=== PATIENT | female | born 1980 | race American Indian/Alaskan Native ===

== ENCOUNTER 2018-07-12 16:46 | Emergency (ER) | payer OTHER ==
[2018-07-12 17:17] VITALS: BP 130/81; RESP 18; TEMP 99; O2SAT 94
[2018-07-12] MEDS ORDERED: Tdap Vaccine 0.5 ml Vial (10-64 yrs) IM ONE ×2 (17:45→17:52)
--- NOTE | 2018-07-12 17:52 | C.PDOC ---
History Of Present Illness 37 y/o female c/o laceration to right pinky from a can today. last tdap unk. pt sts it didn't stop bleeding for an hour, not on blood thinners. no active bleeding now. 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 Negative for: Rash Neurological: Negative for: Weakness, Numbness Physical Exam - Physical Exam Appears: Non-toxic, No Acute Distress Skin: Warm, Dry, Other (0.5 cm shallow lacration to right pinky finger proximal to nail; no actibe bleeding. ) Extremity: Normal ROM, Capillary Refill (normal) Pulses: Left Radial: Normal, Right Radial: Normal Neurological/Psych: Oriented x3, Normal Speech, Normal Cognition, Normal Motor, Normal Sensation ED Course And Treatment O2 Sat by Pulse Oximetry: 94 Laceration - Laceration Repair right pinky Wound Length (In cm): 0.5 Description Of Wound: Linear Wound Cleansed With: Sterile Saline Wound Examination: Irrigated With Saline Wound Closure: Skin Glue Wound Complexity: Simple Medical Decision Making Medical Decision Making: shallow laceration to fight pinky finger repaired with glue. Disposition Counseled Patient/Family Regarding: Diagnosis, Need For Followup - Disposition Disposition: HOME/ ROUTINE Disposition Time: 17:50 Condition: GOOD Additional Instructions: Keep finger clean and dry. Glue will fall off on its own. Tylenol for pain if needed. Instructions: Laceration Repair With Glue (DC) Forms: [facility] ([place]), General Discharge Instructions - Clinical Impression Clinical Impression: Laceration of right little finger
[2018-07-12 18:15] VITALS: PULSE 72
== END 2018-07-12 18:25 | disposition home or self-care (01) ==
LOC: C.ER 16:46
DX: S61.216A Laceration without foreign body of right little finger without damage to nail, initial encounter (principal); W45.8XXA Other foreign body or object entering through skin, initial encounter